=== PATIENT | female | born 1990 | race Native Hawaiian/Other Pacific Islander ===

== ENCOUNTER 2017-04-30 17:22 | Emergency (ER) | payer BC, OTHER ==
[~2017-04-30] VITALS: Ht 154.9 cm; Wt 48.0 kg
[~2017-04-30 17:22] MED LIST: CALC-179 OR; IBUP800 PO; IRON325T2 OR; PRENTAB72 PO
[2017-04-30 17:32] VITALS: BP 123/61; PULSE 70; RESP 20; TEMP 98.4; O2SAT 99
[2017-04-30] MEDS ORDERED: SODIUM CHLORIDE 0.9% FLUSH 10 ML FLUSH IVF PRN (20:00)
--- NOTE | 2017-04-30 20:06 | PD ---
HPI Chief Complaint: Related Problem Time Seen by Provider: 20:03 Travel History International Travel<30 days: No Contact w/Intl Traveler<30days: No Traveled to known affect area: No History of Present Illness HPI Patient comes emergency Department with concerns for possible ectopic . Patient reports she's been having pain in her left lower quadrant of her abdomen for approximately 2 weeks has been intermittent. Patient states this got worse over the past several days. Patient denies any pain currently. Patient describes pain as sharp stabbing pain that comes and goes. Denies any radiation of the pain. Denies doing anything for this. Denies anything making it better or worse. Patient is and denies any complications with previous . Patient denies doing anything for this. Patient states she 's been having more issues with constipation since getting . Patient lives she is a proximally 7 weeks but has not seen anyone for this yet. Denies any loss change in bladder reports a white odiferous vaginal discharge. Denies any back pain, chest pain, shortness of breath, numbness or tingling anywhere, or bleeding. PFSH Past Medical History Medical History: Denies Significant Hx Diminished Hearing: No ?: LMP: 03/03/17 : 1 Para: 1 Social History Alcohol Use: Yes (RARELY) Tobacco Use: Yes Substance Use: No Allergies-Medications (Allergen,Severity, Reaction): Coded Allergies: No Known Allergies (Unverified , 01/03/13) Reported Meds & Prescriptions Reported Meds & Active Scripts Active Reported Motrin 800 Mg Tab (Ibuprofen) 800 Mg Tab 800 Mg PO Q8HPRN Iron (Ferrous Sulfate) 325 Mg Tab 325 Mg OR Calcium (Calcium & Phosphorus W/ Vitami) Tab 600 Mg OR ( Vit W/ Ferrous Fumara) Tab 1 PO WHILE Review of Systems Except as stated in HPI: all other systems reviewed are Neg Physical Exam Narrative GENERAL: Well-developed, well nourished, in no acute distress, and non-ill appearing. SKIN: Focused skin assessment warm and dry. HEAD: Atraumatic. Normocephalic. EYES: Pupils equal and round. EOMI. No scleral icterus. No injection or drainage. ENT: No nasal bleeding or discharge. Mucous membranes pink and moist. NECK: Trachea midline. Supple. No nuclear rigidity. CARDIOVASCULAR: Regular rate and rhythm. No murmur appreciated. RESPIRATORY: No accessory muscle use. No respiratory distress. Clear to auscultation. Breath sounds equal bilaterally. GASTROINTESTINAL: Abdomen soft, non-tender, nondistended. Hepatic and splenic margins not palpable. Normal bowel sounds 4. No pulsatile mass. GENITOURINARY: Normal external genitalia without lesions or erythema. Vaginal vault without blood or drainage. Cervical os was closed without drainage. No cervical motion tenderness. Uterus nontender and nonenlarged. Bilateral adnexa nontender without masses. There is whitish discharge. Exam was performed in presence of operations staff specialist security Lisa at all times. MUSCULOSKELETAL: No obvious deformities. No clubbing. No cyanosis. No edema. Full range of motion. NEUROLOGICAL: Awake and alert. No obvious cranial nerve deficits. Motor grossly within normal limits. Normal speech. PSYCHIATRIC: Appropriate mood and affect; insight and judgment normal. Data Data Last Documented VS Vital Signs Date Time Temp Pulse Resp B/P Pulse Ox O2 Delivery O2 Flow Rate FiO2 04/30/17 20:35 67 16 98/62 98 Room Air 04/30/17 17:32 98.4 Orders Complete Blood Count With Diff (04/30/17 20:00) Comprehensive Metabolic Panel (04/30/17 20:00) Wet Prep Profile (04/30/17 20:00) Urinalysis - C+S If Indicated (04/30/17 20:00) Iv Access Insert/Monitor (04/30/17 20:00) Ecg Monitoring (04/30/17 20:00) Cath For Specimen (04/30/17 20:00) Sodium Chloride 0.9% Flush (Ns Flush) (04/30/17 20:00) Ed Urine Pregnancytest Poc (04/30/17 20:00) Beta Hcg (Quant/Titer) (04/30/17 20:00) Gc And Chlamydia Pcr (04/30/17 22:50) Us Pelvis (Ques Pr/Ect)W Trans (04/30/17 ) Labs Laboratory Tests Test 04/30/17 04/30/17 20:30 20:45 White Blood Count 8.9 TH/MM3 Red Blood Count 4.08 MIL/MM3 Hemoglobin 12.5 GM/DL Hematocrit 37.6 % Mean Corpuscular Volume 92.1 FL Mean Corpuscular Hemoglobin 30.6 PG Mean Corpuscular Hemoglobin 33.3 % Concent Red Cell Distribution Width 13.0 % Platelet Count 187 TH/MM3 Mean Platelet Volume 8.5 FL Neutrophils (%) (Auto) 59.9 % Lymphocytes (%) (Auto) 33.0 % Monocytes (%) (Auto) 6.4 % Eosinophils (%) (Auto) 0.4 % Basophils (%) (Auto) 0.3 % Neutrophils # (Auto) 5.3 TH/MM3 Lymphocytes # (Auto) 2.9 TH/MM3 Monocytes # (Auto) 0.6 TH/MM3 Eosinophils # (Auto) 0.0 TH/MM3 Basophils # (Auto) 0.0 TH/MM3 CBC Comment DIFF FINAL Differential Comment Urine Color YELLOW Urine Turbidity CLEAR Urine pH 8.0 Urine Specific [place] 1.024 Urine Protein TRACE mg/dL Urine Glucose (UA) NEG mg/dL Urine Ketones NEG mg/dL Urine Occult Blood NEG Urine Nitrite NEG Urine Bilirubin NEG Urine Urobilinogen LESS THAN 2.0 MG/DL Urine Leukocyte Esterase NEG Urine RBC LESS THAN 1 /hpf Urine WBC 1 /hpf Urine Squamous Epithelial 1 /hpf Cells Urine Amorphous Sediment RARE Urine Mucus FEW /lpf Microscopic Urinalysis Comment CULT NOT INDICATED Sodium Level 136 MEQ/L Potassium Level 4.0 MEQ/L Chloride Level 104 MEQ/L Carbon Dioxide Level 26.5 MEQ/L Anion Gap 6 MEQ/L Blood Urea Nitrogen 12 MG/DL Creatinine 0.57 MG/DL Estimat Glomerular Filtration 127 ML/MIN Rate Random Glucose 80 MG/DL Calcium Level 9.0 MG/DL Total Bilirubin 0.2 MG/DL Aspartate Amino Transf 13 U/L (AST/SGOT) Alanine Aminotransferase 19 U/L (ALT/SGPT) Alkaline Phosphatase 44 U/L Total Protein 6.8 GM/DL Albumin 3.5 GM/DL Human Chorionic Gonadotropin, 639[address] MIU/ML Quant Clue Cells (Wet Prep) NONE SEEN Vaginal Trichomonas (Wet Prep) NONE SEEN Vaginal Yeast (Wet Prep) NONE SEEN MDM Medical Decision Making Medical Screen Exam Complete: Yes Emergency Medical Condition: Yes Interpretation(s) Ultrasound read by the radiologist shows: 1. Viable IUP of 7 weeks and one day gestational age. 2. Small subchorionic hemorrhage in the lower uterine segment. 3. Left ovary not visualized. Differential Diagnosis Ectopic , threatened , ovarian cyst, constipation, , other Narrative Course Presents medical records reviewed shows patient is Rh+. The patient presented with lower abdominal/pelvic pain and the patient was nontender. The pain is not rhythmic. The patient is at about 7 weeks. The patient otherwise appeared comfortable and hydrated. There was no vaginal bleeding. US was performed and showed SIUP at 7 weeks and normal cardiac activity. Urine analysis revealed no evidence of UTI. There was no evidence of cervicitis or PID. Pain is most likely due to ligamental pains or normal discomforts of , possibly due to ovarian cyst and evaluation revealed no clinical evidence or picture of acute ovarian torsion at this time. The patient appears comfortable and no distress and no vomiting. The patient is to return if worsens, pain worsens or changes, develops vaginal bleeding, develop persistent fever, inability to tolerate fluids with or without vomiting, unable to establish follow up or as needed. There was no evidence of an acute, surgical abdomen at this time. There was no clinical evidence to support cholecystitis/cholelithiasis, pancreatitis, perforation of gastric ulcer, colitis, diverticulitis, obstruction, abdominal or femoral herniation, volvulus , early appendicitis, or hernial incarceration or strangulation at this time. There was no evidence to support vascular pathology such as AAA, mesenteric ischemia , nor GIB. There was also no clinical evidence by history, exam or risk factors to suggest atypical presentation of cardiac disease such as ACS, AMI or atypical angina. No evidence to suggest early labor or obvious miscarriage at this time. The patient agreed with plan of care and management. The patient was instructed to follow up with their OB physician this week. Patient in no obvious distress upon re-evaluation. All pertinent laboratory/ Radiology result(s) discussed with patient. Discussed patient with Dr. Osullivan prior to discharge, who is in agreement with plan of care and disposition. Any questions/concerns in reference to patient diagnosis/ condition discussed and clarified prior to patient's discharge. Reinforced sheer importance of close follow up with patient's primary physician or primary care clinic and/or OB. Instructed patient to return to ED immediately, if symptoms return/worsen. Pt showed understanding of above instructions. Further instructions and recommendations were detailed in discharge paperwork. Pt ambulated without difficulty out of ED at discharge. Diagnosis Primary Impression: Abdominal pain during in first trimester Additional Impression: Subchorionic hemorrhage in first trimester Referrals: [facility] Primary Care OB [facility] Captain/[employer] Patient Instructions: Abdominal Pain in (ED), General Instructions, Subchorionic Hemorrhage (ED) Additional Instructions: Follow-up with your OB this week for reevaluation. Pelvic rest. No sex. No heavy lifting. Return to the emergency department if symptoms get worse. Disposition: 01 DISCHARGE HOME Condition: Abhishek Wilson Apr 30, 2017 20:06
[2017-04-30 20:35] VITALS: BP 98/62; PULSE 67; RESP 16; O2SAT 98
[2017-04-30 20:53] LABS: AUTOMATED NEUTROPHIL # 5.3 TH/MM3 (1.8-7.7); BASOPHIL % 0.3 % (0.0-2.0); EOSINOPHIL % 0.4 % (0.0-4.0); HEMATOCRIT 37.6 % (35.0-46.0); HEMO FLAGS DIFF FINAL; LYMPHOCYTE # 2.9 TH/MM3 (1.0-4.8); MEAN CELL VOLUME 92.1 FL (80.0-100.0); MEAN CORPUSCULAR HEMOGLOBIN 30.6 PG (27.0-34.0); MEAN CORPUSCULAR HGB CONC 33.3 % (32.0-36.0); MONO % 6.4 % (0.0-8.0); NEUT % 59.9 % (16.0-70.0); PLATELET COUNT 187 TH/MM3 (150-450); RED BLOOD COUNT 4.08 MIL/MM3 (4.00-5.30); WHITE BLOOD COUNT 8.9 TH/MM3 (4.0-11.0)
[2017-04-30 21:01] LABS: BLOOD, URINE NEG (NEG); COMMENT (UR) CULT NOT INDICATED; CULTURE IF INDICATED CULT NOT INDICATED; GLUCOSE,URINE NEG (NEG); KETONE, URINE NEG (NEG); MUCUS URINE FEW /lpf (OCC); NITRITE,URINE NEG (NEG); SQUAMOUS EPITHELIAL CELL URINE 1 /hpf (0-5); URINE COLOR YELLOW (YELLW/STRAW)
[2017-04-30 21:22] LABS: ALT (GPT) 19 U/L (10-53); ANION GAP 6 MEQ/L (5-15); AST (GOT) 13 U/L (15-37); BICARBONATE 26.5 MEQ/L (21.0-32.0); BLOOD UREA NITROGEN 12 MG/DL (7-18); CHLORIDE 104 MEQ/L (98-107); GLOMERULAR FILTRATION RATE 127 ML/MIN (>89); SODIUM (NA) 136 MEQ/L (136-145)
[2017-04-30 21:39] LABS: ALKALINE PHOSPHATASE 44 U/L (45-117); BETA HCG QUANT 61780 MIU/ML (0-5); TOTAL BILIRUBIN ADULT 0.2 MG/DL (0.2-1.0)
--- NOTE | 2017-04-30 23:35 | RADRPT ---
EXAM DATE/TIME: 04/30/2017 22:32 [place] COMPARISON: No previous studies available for comparison. INDICATIONS : Pelvic pain. LAB(S): Beta-hC MEDICAL HISTORY : . Pelvic pain. SURGICAL HISTORY : None. ENCOUNTER: Initial ACUITY: 1 week PAIN SCORE: 4/10 LOCATION: Bilateral pelvis MEASUREMENTS: RIGHT OVARY: 3.0 x 2.3 x 1.6cm UTERUS: 9.2 x 7.2 x 5.6 cm ENDOMETRIAL STRIPE: 9 mm FREE FLUID: No free fluid CROWN RUMP LENGTH: 1.1 cm = 7 WKS 1 DAYS FHR: 163 BPM FINDINGS: UTERUS: There is a gestational sac within the endometrial cavity. There is a pole measuring 7 weeks and one day of gestational age. There is a heartbeat of May 63 beats per minute. The there is a small mixed echogenic density in the lower uterine segment. Most likely a small subchorionic hemorrh age. RIGHT OVARY: Ovary contains no mass or significant cystic lesion. LEFT OVARY: Not visualized MISCELLANEOUS: No free fluid. CONCLUSION: 1. Viable IUP of 7 weeks and one day gestational age. 2. Small subchorionic hemorrhage in the lower uterine segment. 3. Left ovary not visualized. Cesar Ortega MD on April 30, 2017 at 23:30 Board Certified Radiologist. This report was verified electronically.
[2017-05-01 02:13] LABS: CHLAMYDIA PCR NOT DETECTED (NOT DETECT); NEISSERIA PCR NOT DETECTED (NOT DETECT)
== END 2017-04-30 23:58 | disposition home or self-care (01) ==
LOC: NEPD 17:22
DX: O20.8 Other hemorrhage in early pregnancy (principal); Z3A.01 Less than 8 weeks gestation of pregnancy
CPT/HCPCS: 76700; 76817; 80053; 81001; 84702; 84703; 85025; 87210; 87491; 87591